=== PATIENT | female | born 1975 | race Hispanic/Latino ===

== ENCOUNTER → 2017-01-07 | Outpatient (CLI) | payer OTHER ==
--- NOTE | 2017-01-07 13:09 | REP ---
Clinical: Low back pain. Technique: AP, lateral, bilateral oblique and coned-down views of the lumbosacral spine. Findings: AP view demonstrates mild chronic dextroconvex scoliosis. No evidence for spondylolysis or spondylolisthesis. Disc spaces appear relatively normal. No acute fracture / compression injury or subluxation. Impression: Mild chronic dextroconvex scoliosis. If the patient remains symptomatic consider MRI for further investigation. Signed by Alfred Machado MD 01/07/2017 01:00 P
== END ==
LOC: M LRY 12:13
PROVIDERS: ATTEND Physician Assistant
DX: M54.5 Low back pain (principal); M41.9 Scoliosis, unspecified
CPT/HCPCS: 72110; G0463

== ENCOUNTER → 2017-03-01 | Outpatient (REF) | payer OTHER ==
[2017-03-04 00:06] LABS: Lyme Disease IgG/IgM Antibodie <0.91 ISR (0.00-0.90); Lyme Disease IgM Ab Quantitati <0.80 index (0.00-0.79)
== END ==
LOC: M SFHCLERA 17:04
PROVIDERS: ATTEND Physician Assistant
DX: M25.50 Pain in unspecified joint (principal)

== ENCOUNTER → 2017-09-21 | Outpatient (CLI) | payer OTHER | LOC: M RAD 12:53 | DX: Z12.39 Encounter for other screening for malignant neoplasm of breast (principal) ==